=== PATIENT | female | born 1965 | race Caucasian/White ===

== ENCOUNTER 2016-07-24 06:43 | Inpatient (IN) | payer OTHER ==
[2016-07-14 16:47] LABS: BASOPHILS 0.7 %; BASOPHILS ABSOLUTE 0.04 10/3/uL (0.0-0.16); EOSINOPHILS 5.5 %; IMMATURE GRANULOCYTES 0.2 %; IMMATURE GRANULOCYTES ABSOLUTE 0.01 10/3/uL (0.0-0.11); LYMPHOCYTES 41.1 %; LYMPHOCYTES ABSOLUTE 2.24 10/3/uL (0.67-4.30); MEAN CORPUSCULAR HEMOGLOB 25.7 pg (26.0-34.0); MEAN CORPUSCULAR VOLUME 83.2 fL (80-100); MONOCYTES 6.4 %; MONOCYTES ABSOLUTE 0.35 10/3/uL (0.21-1.20); NEUTROPHILS 46.1 %; NEUTROPHILS ABSOLUTE 2.51 10/3/uL (2.02-8.40); PLATELET COUNT 263 10/3/uL (150-400); RBC DISTRIBUTION WIDTH 14.2 % (12.0-16.0); RED CELL COUNT 4.99 10/6/uL (4.0-5.6); WHITE BLOOD CELLS 5.5 10/3/uL (4.5-10.5)
[2016-07-14 16:48] LABS: HEMATOCRIT 41.5 % (36.0-48.0); HEMOGLOBIN 12.8 g/dL (12.0-16.0); MANUAL DIFF NO %; MEAN CORPUS HGB CONC 30.8 g/dL (32.0-36.0)
[2016-07-14 16:56] LABS: PROTIME (NOT ORD) 12.6 SEC (12.0-14.5)
[2016-07-14 17:01] LABS: A/G RATIO 1.1 (0.7-1.9); ALBUMIN 3.8 G/DL (3.5-5.0); CHLORIDE, SERUM 105 MMOL/L (96-112); CO2 (CARBON DIOXIDE) 28 MMOL/L (24-34); CREATININE 0.76 MG/DL (0.55-1.02); GFR AFRICAN AMERICAN 105 ML/MIN (>=60); GFR NON AFRICAN AMERICAN 91 ML/MIN (>=60); GLOBULIN 3.5 G/DL (2.5-4.1); POTASSIUM, SERUM 4.6 MMOL/L (3.5-5.3); SGOT(AST) 10 U/L (5-40); SGPT(ALT) 19 U/L (5-65); SODIUM, SERUM 141 MMOL/L (135-148); TOTAL BILIRUBIN 0.3 MG/DL (0-1.2); TOTAL PROTEIN 7.3 G/DL (6.0-8.5)
[2016-07-14 17:02] LABS: ALKALINE PHOSPHATASE 63 U/L (45-117); BUN (BLOOD UREA NITROGEN) 14 MG/DL (6-23); CALCIUM, SERUM 9.5 MG/DL (8.5-10.4); GLUCOSE, SERUM 90 MG/DL (60-99)
[2016-07-14 17:12] LABS: ASCORBIC ACID (UR NOT ORDER) NEG (NEG); BILIRUBIN, URINE NEGATIVE (NEG); KETONE, URINE NEGATIVE (NEG); LEUKOCYTE ESTERASE(NOT OR NEG (NEG); WBC (NOT ORDERED) (RFLEX) < 1 (0-5)
--- NOTE | ~2016-07-24 | OP ---
Record Of Operation [facility] [address] [place]. [address] NAME: ABHINAV MILLS : 65 STATUS : ADM IN PAT#: [id number] AGE: 51 ADM/REG DATE : 07/24/16 MR#: [id number] REPORT SERV DATE: 07/24/16 DICTATED BY: ROOSEVELT HICKEY DATE: 07/24/16 REPORT STATUS : Draft TRANSCRIBED BY: MODMamadou DATE: 07/24/16 DATE OF PROCEDURE: 07/24/2016 PREOPERATIVE DIAGNOSIS: Severe right knee degenerative joint disease. POSTOPERATIVE DIAGNOSIS: Severe right knee degenerative joint disease. OPERATION: Right posterior stabilized total knee replacement, cemented. SIDE: Right. SIZE: See chart. ANESTHESIA: See chart. ESTIMATED BLOOD LOSS: About 10 mL. TOURNIQUET TIME: Approximately 1 hour and 10 minutes. COMPLICATIONS: None. SPECIMENS: Articular surfaces. PROCEDURE IN DETAIL: The patient was appropriately identified and marked. The operative side agreed with the consent form and it was checked by all members of the surgical team. The patient was taken to the operating room and anesthesia was induced per the anesthesiologist. The patient was carefully transferred to the operating table without incident. The patient received appropriate prophylactic antibiotics and a Power catheter was placed in the standard sterile technique. The patient was then carefully positioned, padded, prepped and draped in the normal sterile fashion. The operative leg had been appropriately identified and checked by all members of the operating team against the consent form and found to be the correct limb. The patient's lower extremity was then exsanguinated with an Lyle wrap and a tourniquet was inflated to 350 mm/Hg. Sharp dissection was carried out through a straight midline longitudinal incision and electrocautery through the fat. Sharp quad splitting approach was carried out between about the medial 10 percent of the tendon and the lateral 90 percent of the tendon and down around the medial aspect of the patella and then 1 cm medial to the tibial tubercle. The patella was carefully everted and the posterior fat pad was excised and gentle MCL elevation was carried out off the proximal medial tibia subperiosteally. IM guide was placed in the distal femur after using the appropriate drill. The distal femoral cutting guide was held with 2 pins and the distal cut made. Meniscal fragments and the ACL and the PCL were excised with electrocautery, carefully staying anterior to the posterior fat pad. The proximal tibial alignment guide was set appropriately and the proximal tibial cut made. Spacer block verified full extension with excellent mediolateral balance. Sizing guide was used to place 2 drill holes in the distal femur and the four-in-one cutting block was then placed, impacted and checked Record Of Operation [facility] [address] [place]. [address] NAME: ABHINAV MILLS : 65 STATUS : ADM IN PAT#: [id number] AGE: 51 ADM/REG DATE : 07/24/16 MR#: [id number] REPORT SERV DATE: 07/24/16 DICTATED BY: ROOSEVELT HICKEY DATE: 07/24/16 REPORT STATUS : Draft TRANSCRIBED BY: DEJON DATE: 07/24/16 to be sure it would not notch with an renetta wing and it was held with 2 pins. The anterior cut, posterior cut, anterior chamfer and posterior chamfer cuts were made. The pins were removed and the block was removed. A posterior release was carried out with a curved 3/4 inch osteotome staying right on the bone posteriorly. The box-cut guide was then placed, impacted and held with 2 pins and a reciprocating saw was used to cut out the box. With the trial components in place, there was excellent medial/lateral balance. The patella was then measured with a caliper, cut first with an oscillating saw and then reamed with a patella reamer. With the trial patella in place, there was excellent patellar tracking. Rotation was marked on the tibia and the tibia prepared with a drill and stamp chisel. All surfaces were then copiously irrigated with pulsatile lavage, carefully dried and then vacuum-mixed cement was pressurized with a cement gun in a doughy phase. The tibial component was placed, impacted and excess cement was removed. The cement was then pressurized in the femur and placed on the posterior runners of the femoral component, which was placed, impacted and excess cement removed and the knee was brought out into extension on a trial spacer. The cement was then pressurized in the patella. Patellar component was then placed, clamped and excess cement was removed. Once all cement was hardened, the knee was taken through range of motion. Further extruded cement was removed with a small osteotome. Then based on the trial inserts, we decided on the actual insert, which was placed in the standard fashion and held with a locking mechanism. The knee was then copiously irrigated and then closed in a layered fashion over a medium Hemovac drain superolaterally with interrupted #1 in the deep fascia, 2-0 subcutaneous and ananda in the skin. The wounds were dressed sterilely and the tourniquet was deflated. The patient was then awakened and taken to the postanesthesia care unit without incident. All counts were correct at the end of the case. WTB/MODL Ceferino Hickey M.D. / [id number] CC: Michelle Hartman M.D.
[~2016-07-24 06:43] MED LIST: ATEN25 PO; GOODY'S EX PO; LIPITOR20 PO; NORCO1 TAB PO; PRIN10 PO; ZOL100 PO
[2016-07-25 04:54] LABS: BUN (BLOOD UREA NITROGEN) 14 MG/DL (6-23); CALCIUM, SERUM 9.1 MG/DL (8.5-10.4); CHLORIDE, SERUM 106 MMOL/L (96-112); CO2 (CARBON DIOXIDE) 25 MMOL/L (24-34); CREATININE 0.82 MG/DL (0.55-1.02); GFR AFRICAN AMERICAN 96 ML/MIN (>=60); GFR NON AFRICAN AMERICAN 83 ML/MIN (>=60); POTASSIUM, SERUM 4.5 MMOL/L (3.5-5.3); SODIUM, SERUM 142 MMOL/L (135-148)
[2016-07-25 04:55] LABS: HEMATOCRIT 30.8 % (36.0-48.0); HEMOGLOBIN 9.7 g/dL (12.0-16.0)
[2016-07-25 04:56] LABS: INTERNATIONAL NORMAL RATI 1.1 UNITS (-); PROTIME (NOT ORD) 14.4 SEC (12.0-14.5)
[2016-07-25 04:57] LABS: GLUCOSE, SERUM 116 MG/DL (60-99)
[2016-07-25] MEDS ORDERED: ZOFRAN4 PO (12:46)
[2016-07-25] MEDS ORDERED: PCET PO (12:46)
[2016-07-25] MEDS ORDERED: C5 PO (12:46)
== END 2016-07-25 16:55 | disposition home or self-care (01) | DRG 470 ==
LOC: SDC/OF 06:43 → PACU 10:28 → 3SO 11:39
PROVIDERS: Specialist
PROC: 0SRC0J9 Replacement of Right Knee Joint with Synthetic Substitute, Cemented, Open Approach (ICD-10-PCS; principal; 2016-07-24 08:00)
DX: M17.11 Unilateral primary osteoarthritis, right knee (principal); I10 Essential (primary) hypertension; E78.5 Hyperlipidemia, unspecified; F32.9 Major depressive disorder, single episode, unspecified
CPT/HCPCS: 36415; 71020-PO; 80048; 80053; 81001; 85014; 85018; 85025; 85610; 87641; 88305; 88311; 93005; 97110-GP; 97116-GP; 97161-GP; 97165-GO; A9270-GY; C1776; J0690; J1885; J2250; J2274; J2370; J2405; J2795; J3010